=== PATIENT | male | born 1995 | race Asian ===

== ENCOUNTER 2020-06-12 17:06 | Emergency (ER) | payer OTHER, SELFPAY ==
[2020-06-12 17:17] VITALS: BP 142/79; PULSE 74; RESP 16; TEMP 36.6; O2SAT 98; BMI 23.6
--- NOTE | 2020-06-12 17:30 | ED.GENADULT ---
HPI - General Adult General Chief complaint: General Medical Stated complaint: Flu like symptoms Time Seen by Provider: 06/12/20 17:30 Source: patient Mode of arrival: ambulatory Limitations: no limitations History of Present Illness HPI narrative: Two days of body aches chills and today slight sore throat states would like to get COVID tested. Denies any chest pain shortness of breath. No fever. Onset (ago): day(s) (2 days ) Severity: mild Treatments prior to arrival: none Related Data Allergies Allergy/AdvReac Type Severity Reaction Status Date / Time No Known Allergies Allergy Verified 06/12/20 17:32 Review of Systems Review of Systems: Constitutional: No Weight loss, No Fever, + Chills, No Night Sweats, No Fatigue, No Malaise ENT/Mouth: No Hearing loss, No Ear Pain, + Nasal Congestion, No Sinus Pain, No Hoarseness, + sore throat, No Rhinorrhea, No Swallowing Difficulty Eyes: No Eye Pain, No Swelling, No Redness, No Foreign Body, No Discharge, No Vision Changes Cardiovascular: No Chest Pain, No SOB, No Dyspnea on Exertion, No Orthopnea, No Edema, No Palpitations Respiratory: No Cough, No Sputum, No Wheezing, No Smoke Exposure, No Dyspnea Gastrointestinal: No Nausea, No Vomiting, No Diarrhea, No Constipation, No abdominal Pain, No Hematochezia, No Melena Genitourinary: no irregular bleeding, No Dysuria, No Urinary Frequency, No Hematuria, No Urinary Incontinence, No Urgency, No Flank Pain Musculoskeletal: No joint pain, No Myalgias, No Joint Swelling Skin: No Skin Lesions, No rash Neuro: No Weakness, No Numbness, No Paresthesias, No Loss of Consciousness, No Dizziness, No Headache Psych: No Social Issues, Heme/Lymph: No Bruising, No Bleeding,No Lymphadenopathy Endocrine: No Polyuria, No Polydipsia, No Temperature Intolerance Yes all other systems are reviewed and are negative PMFSH Past Medical History Medical History (Updated 06/12/20 @ 17:34 by Brandon Proctor NP) No known health problems Social History Social History Advance Directives: No Advance Directives Information Provided: Yes Physical Exam Vital Signs: Vital Signs: Last Vital Signs Temp 97.9 F 06/12/20 17:17 Pulse 74 06/12/20 17:17 Resp 16 06/12/20 17:17 BP 142/79 H 06/12/20 17:17 Pulse Ox 98 06/12/20 17:17 Body Mass Index 23.6 Rviewed Const: General: cooperative and healthy appearing; No acute distress or intoxicated appearing Nutritional Appearance: average body habitus Orientation/consciousness: patient oriented x3 HENMT: Head: Yes normal to inspection Ears: hearing grossly normal bilaterally Eyes: General: appearance normal, both eyes and all related structures Visual Mejia: normal visual mejia by confrontation Neck: Neck: Yes normal visual inspection and No tender Thyroid: Thyroid normal Chest: Chest palpation & inspection: normal inspection of the chest Resp: Effort & Inspection: normal respiratory effort Cardio: Jugular venous distension: no JVD : General: Yes no CVA tenderness Back/Spine/Pelvis: Back: no CVA tenderness Skin: General skin exam: no rashes or lesions noted Neuro: General: patient oriented x3 Extrem: General: Yes normal to inspection Discharge Plan Discharge Clinical Impression: Acute viral syndrome Patient Disposition: Home, Self-Care Instructions: Viral Syndrome (ED) Additional Instructions: We have tested for COVID-19 as well as strep test The COVID-19 test will take up to 3-5 days to come back We will call you with results even if negative or positive Strep test she will take about 1 hour to result we will call with results only if positive Drink plenty fluids Salt water gargle Throat lozenges Self-isolation/social distancing Return if any concerns or worsening symptoms Thank you Referrals: Physician,Davion [Primary Care Provider] - 1 week
== END 2020-06-12 17:53 | disposition home or self-care (01) ==
PROVIDERS: Nurse Practitioner Primary Care; Emergency Provider Internal Medicine
DX: B34.9 Viral infection, unspecified (principal); M79.10 Myalgia, unspecified site; Z20.828 Contact with and (suspected) exposure to other viral communicable diseases
CPT/HCPCS: 87071; 87880; 99283; 99284; U0003

== ENCOUNTER 2021-05-19 11:43 | Emergency (ER) | payer OTHER, SELFPAY ==
[2021-05-19 11:49] VITALS: BP 121/68; PULSE 68; RESP 16; TEMP 36.8; O2SAT 99; BMI 24.3
--- NOTE | 2021-05-19 12:50 | ED_ITS ---
HPI - General Adult General Chief complaint: General Medical Stated complaint: belly button bleeding Time Seen by Provider: 05/19/21 12:50 Source: patient Mode of arrival: ambulatory Limitations: no limitations History of Present Illness HPI narrative: Umbilical infection with drainage for 1 year. Patient denies coleman ving diabetes. States that at times his abdomen feels sore. Onset (ago): year(s) Radiation: non-radiation Severity: mild Pain Consistency: constant Exacerbating factors: none Associated symptoms: denies other symptoms Related Data Previous Rx's Medication Instructions Recorded clotrimazole 1 % topical cream 1 appl TOPICAL BID 28 Days #90 g 05/19/21 (Clotrimazole AF) Allergies Allergy/AdvReac Type Severity Reaction Status Date / Time No Known Allergies Allergy Verified 06/12/20 17:32 Review of Systems Constitutional: Constitutional: Reports no additional constitutional complaints Eyes: Eyes: Reports no additional eye complaints ENT: Denies dizziness Cardiovascular: Cardiovascular: Reports no additional cardiovascular complaints Respiratory: Respiratory: Reports as per HPI Gastrointestinal: Gastrointestinal: Reports no additional gastrointestinal complaints Musculoskeletal: Musculoskeletal: Reports no additional musculoskeletal complaints Integumentary/Breasts: Skin/Breast: Denies rash Neurologic: Reports system reviewed and no additional complaints, except as documented, Denies dizziness and Denies Sensory deficit (Neuro) Psychiatric: Psychiatric: Denies anxiety PMFSH Past Medical History Medical History No known health problems Social History Social History Alcohol intake: never Advance Directives: Yes Advance Directives Information Provided: Yes Advance Directives on File: No Physical Exam Vital Signs: Vital Signs: Last Vital Signs Temp 98.9 F 05/19/21 15:41 Pulse 60 05/19/21 15:41 Resp 18 05/19/21 15:41 BP 123/83 05/19/21 15:41 Pulse Ox 98 05/19/21 15:41 Body Mass Index 24.3 Const: General: healthy appearing Nutritional Appearance: average body habi tus Orientation/consciousness: oriented to person and patient oriented x3 Limitations: no limitations HENMT: Head: Yes normal to inspection Ears: external ears normal General nose exam: Normal external nose present Mouth: Normal oral and palatal mucosa present and oropharynx normal Throat: Yes posterior oropharynx normal Eyes: General: appearance normal, both eyes and all related structures Neck: Other: supple Neck: Yes normal visual inspection Chest: Chest palpation & inspection: normal inspection of the chest Resp: Auscultation: clear to auscultation bilaterally Cardio: Jugular venous distension: no JVD Rate: regular rate Rhythm: regular rhythm Heart sounds: S1 normal heart sound present and S2 normal heart sound present GI: Other: abdomen completely soft, patient with fungal discharge from umbilicus Inspection: Yes normal to inspection Palpation (GI): Soft to palpation, nontender and No hepatosplenomegaly present Auscultation: normal bowel sounds : General: Yes no CVA tenderness Back/Spine/Pelvis: Back: no CVA tenderness Skin: General skin exam: no rashes or lesions noted Neuro: General: oriented to person and patient oriented x3 Cranial nerves: Yes CN's II-XII intact bilaterally Motor exam (neuro): 5/5 motor strength present throughout Sensory Exam: No Sensory deficit (Neuro) Extrem: General: Yes normal to inspection Psych: Appearance: grossly normal Course Reevaluation(s) Reevaluation #1: no evidence of diabetes will dc on lotrimin for umbilical candidiasis Time: 16:04 Medical Decision Making Lab Data Result diagrams: 05/19/21 14:57 05/19/21 14:57 Labs: Lab Results 05/19/21 05/19/21 Range/Units 14:57 14:57 WBC 5.7 (4.8-10.8) X10*3/uL RBC 4.97 (4.60-5.80) X10*6/uL Hgb 14.4 (14.0-18.0) g/dl Hct 42.7 (42.0-52.0) % MCV 85.9 (80.0-98.0) fL MCH 29.0 (27.0-33.0) pg MCHC 33.7 (31.0-36.0) g/dl RDW 11.9 (11.0-16.0) % Plt Count 223 (160-400) X10*3/uL MPV 9.0 L (9.4-12.4) fL Immature Gran % (Auto) 0.2 (0.0-0.4) % Neut % (Auto) 53.7 (45-73) % Lymph % (Auto) 27.6 (20-40) % [place] % (Auto) 11.3 H (2-11) % Eos % (Auto) 6.5 H (0-4) % Baso % (Auto) 0.7 (0-2) % Lymph # (Auto) 1.6 (1.2-4.9) X10*3/uL [place] # (Auto) 0.6 (0.1-1.2) X10*3/uL Eos # (Auto) 0.4 (0.0-0.4) X10*3/uL Baso # (Auto) 0.0 (0.0-0.2) X10*3/uL Abs Immat Gran (auto) 0.01 (0.00-0.03) X10*3/uL Absolute Neuts (auto) 3.0 (2.0-8.3) x10*3/uL Absolute Nucleated RBC 0.000 (0.0-0.012) X10*3/uL Nucleated RBC % (auto) 0.0 (0.0-0.2) /100WBC Sodium 137 (135-145) mmol/L Potassium 3.9 (3.3-5.1) mmol/L Chloride 104 (96-108) mmol/L Carbon Dioxide 25 (22-29) mmol/L Anion Gap 12 (12-20) BUN 17 H (9-16) mg/dL Creatinine 0.88 (0.5-1.4) mg/dL Estim Creat Clear Calc 130.1 Estimated GFR > 60 Random Glucose 97 (60-115) mg/dL Calcium 9.4 (8.4-10.2) mg/dL Discharge Plan Discharge Clinical Impression: Candidiasis Patient Disposition: Home, Self-Care Instructions: Skin Yeast Infection (ED) Prescriptions: New clotrimazole [Clotrimazole AF] 1 % cream 1 appl topical BID 28 Days Qty: 90 RF: 0 Referrals: Physician,Unknown J [Primary Care Provider] - 2 weeks
[2021-05-19 15:00] LABS: MANUAL DIFF FLAG NO
[2021-05-19 15:02] LABS: Basophils Percent Auto 0.7 % (0-2); Eosinophils Absolute Auto 0.4 X10*3/uL (0.0-0.4); Eosinophils Percent Auto 6.5 % (0-4); Hematocrit 42.7 % (42.0-52.0); Hemoglobin 14.4 g/dl (14.0-18.0); Imm Gran Abs Auto 0.01 X10*3/uL (0.00-0.03); Imm Gran Pct Auto 0.2 % (0.0-0.4); Lymphocytes Absolute Auto 1.6 X10*3/uL (1.2-4.9); Lymphocytes Percent Auto 27.6 % (20-40); Mean Corpuscular HGB Conc 33.7 g/dl (31.0-36.0); Mean Corpuscular Volume 85.9 fL (80.0-98.0); Monocytes Absolute Auto 0.6 X10*3/uL (0.1-1.2); Monocytes Percent Auto 11.3 % (2-11); Neutrophils Percent Auto 53.7 % (45-73); Platelet Count 223 X10*3/uL (160-400); Red Blood Count 4.97 X10*6/uL (4.60-5.80); Red Cell Distribution Width 11.9 % (11.0-16.0); White Blood Count 5.7 X10*3/uL (4.8-10.8)
[2021-05-19 15:21] LABS: Anion Gap 12 (12-20); Blood Urea Nitrogen 17 mg/dL (9-16); Calcium 9.4 mg/dL (8.4-10.2); Carbon Dioxide 25 mmol/L (22-29); Chloride 104 mmol/L (96-108); Creatinine Clr Calc Pharmacy 130.1; Estimated Glomerular Filt Rate > 60; Glucose Random 97 mg/dL (60-115); Potassium 3.9 mmol/L (3.3-5.1); Sodium 137 mmol/L (135-145)
[2021-05-19 15:41] VITALS: BP 123/83; PULSE 60; RESP 18; TEMP 37.2; O2SAT 98
== END 2021-05-19 16:20 | disposition home or self-care (01) ==
PROVIDERS: Emergency Provider Emergency Medicine
DX: B37.2 Candidiasis of skin and nail (principal)
CPT/HCPCS: 36415; 80048; 85025; 99283; 99284

== ENCOUNTER 2022-10-08 19:25 | Emergency (ER) | payer OTHER, SELFPAY ==
--- NOTE | ~2022-10-08 | XR_ITS ---
EXAMINATION: XR CHEST CLINICAL INFORMATION: Shortness of COMPARISON: None available. TECHNIQUE: 2 views of the chest were obtained. FINDINGS: No significant abnormality is noted involving the heart, lungs, mediastinum, bony thorax or soft tissues. XR/XR chest 2V IMPRESSION: Unremarkable examination.
[2022-10-08 19:26] VITALS: BP 109/71; PULSE 84; RESP 20; TEMP 36.5; O2SAT 96; BMI 25.5
--- NOTE | 2022-10-08 19:27 | ED.GENADULT ---
HPI - General Adult General Chief complaint: Asthma <REKHA Mendez - Last Filed: 10/08/22 19:27> Stated complaint: SOB <REKHA Mendez - Last Filed: 10/08/22 19:27> Time Seen by Provider: 10/08/22 21:29 <REKHA Mendez - Last Filed: 10/08/22 19:27> Source: patient <Kathe Braxton MD - Last Filed: 10/08/22 23:25> Mode of arrival: ambulatory <Kathe Braxton MD - Last Filed: 10/08/22 23:25> Limitations: no limitations <Kathe Braxton MD - Last Filed: 10/08/22 23:25> History of Present Illness HPI narrative: Patient comes to the emergency room complaining of asthma exacerbation. Patient states that it is unusual for him to have asthma exacerbations. Patient states about 4 days ago he was started on amoxicillin for strep pharyngitis. Patient states that his throat is feeling better. However, now he is having more asthma exacerbations. Patient denies allergies to penicillin, rash. <Kathe Braxton MD - Last Filed: 10/08/22 23:25> Related Data Home medications: Previous Rx's Medication Instructions Recorded clotrimazole 1 % topical cream 1 appl topical BID 4 weeks #90 05/19/21 (Clotrimazole AF) grams albuterol sulfate 90 mcg/actuation 2 puff inhalation Q4-6H PRN 10/08/22 aerosol inhaler shortness of breath or wheezing #8.5 grams prednisone 50 mg tablet 50 mg PO DAILY #4 tabs 10/08/22 <REKHA Mendez - Last Filed: 10/08/22 19:27> Allergies/adverse reactions: Allergies Allergy/AdvReac Type Severity Reaction Status Date / Time No Known Allergies Allergy Verified 10/08/22 19:26 <REKHA Mendez - Last Filed: 10/08/22 19:27> Review of Systems Review of Systems: Constitutional : No Weight loss, No Fever, No Chills, No Night Sweats, No Fatigue, No Malaise ENT/Mouth : No Hearing loss, No Ear Pain, No Nasal Congestion, No Sinus Pain, No Hoarseness, No sore throat, No Rhinorrhea, No Swallowing Difficulty Eyes: No Eye Pain, No Swelling, No Redness, No Foreign Body, No Discharge, No Vision Changes Cardiovascular : No Chest Pain, No SOB, No Dyspnea on Exertion, No Orthopnea, No Edema, No Palpitations Respiratory : No Cough, complaining of wheezing Gastrointestinal : No Nausea, No Vomiting, No Diarrhea, No Constipation, No abdominal Pain, No Hematochezia, No Melena Genitourinary : no irregular bleeding, No Dysuria, No Urinary Frequency, No Hematuria, No Urinary Incontinence, No Urgency, No Flank Pain, No Urinary Flow Changes, No Hesitancy Musculoskeletal : No joint pain, No Myalgias, No Joint Swelling Skin : No Skin Lesions, No rash Neuro : No Weakness, No Numbness, No Paresthesias, No Loss of Consciousness, No Dizziness, No Headache Psych : No Anxiety/Panic, No Depression, No SI/HI/AH/VH, No Social Issues, Heme/Lymph: No Bruising, No Bleeding,No Lymphadenopathy Endocrine : No Polyuria, No Polydipsia, No Temperature Intolerance <Kathe Braxton MD - Last Filed: 10/08/22 23:25> [facility] Past Medical History Medical History: Medical History (Updated 10/08/22 @ 23:24 by Kathe Braxton MD) Asthma exacerbation <REKHA Mendez - Last Filed: 10/08/22 19:27> Social History Social History: Social History Alcohol intake: never Advance Directives: No Advance Directives Information Provided: No <REKHA Mendez - Last Filed: 10/08/22 19:27> Physical Exam ED Vital Signs: Vital Signs - 24 hr 10/08/22 19:26 10/08/22 22:06 10/08/22 22:49 Temperature 97.7 F 99.8 F Pulse Rate 84 86 88 Respiratory Rate 20 14 18 Blood Pressure 109/71 149/73 H Pulse Oximetry 96 98 Oxygen Delivery Method Room Air Room Air BMI result Body Mass Index 25.5 <REKHA Mendez - Last Filed: 10/08/22 19:27> Vital Signs - 24 hr 10/08/22 19:26 10/08/22 22:06 10/08/22 22:49 Temperature 97.7 F 99.8 F Pulse Rate 84 86 88 Respiratory Rate 20 14 18 Blood Pressure 109/71 149/73 H Pulse Oximetry 96 98 Oxygen Delivery Method Room Air Room Air BMI result Body Mass Index 25.5 <Kathe Braxton MD - Last Filed: 10/08/22 23:25> Const Other: Appearance: Alert. Oriented X3. No acute distress. Eyes: Pupils equal, round and reactive to light. ENT: Pharynx normal. Neck: Normal inspection. Neck supple. No lymph nodes noted. No crepitus CVS: Normal heart rate and rhythm. Pulses normal. Normal S1 and S2 Respiratory: No respiratory distress. Bilateral wheezing Abdomen: Soft and nontender. No rigidity. No distention. Skin: Skin warm and dry. Normal skin color. Normal skin turgor. Extremities: No lower extremity edema. No Lacerations. No Rash Neuro: Oriented X 3. No motor deficit. No sensory deficit. Moving all extremities. No slurred speech. CN 2 through 12 grossly intact Psych: calm, cooperative, normal affect <Kathe Braxton MD - Last Filed: 10/08/22 23:25> Course Course Course Narrative: RME performed by Arielle Peace PA-C. Patient is a 27 year old assigned male at presenting to the emergency department with shortness of breath. Patient has a known history of asthma. Labs, imaging, and swabs ordered. Patient placed back in the waiting room pending room availability and results. <REKHA Mendez - Last Filed: 10/08/22 19:27> Medications Administered Discontinued Medications Generic Name Dose Route Start Last Admin Trade Name Freq PRN Reason Stop Dose Admin Albuterol Sulfate 5 mg 10/08/22 21:34 10/08/22 22:03 Albuterol Sulfate (0.083%) 2.5 Mg/3 Ml Vial.Neb INHALE 10/08/22 21:35 5 mg ONCE ONE Administration Methylprednisolone Sodium Succinate 125 mg 10/08/22 21:34 10/08/22 21:48 Methylprednisolone Sod Succ 125 Mg/2 Ml Vial IVPUSH 10/08/22 21:35 125 mg ONCE ONE Administration <REKHA Mendez - Last Filed: 10/08/22 19:27> Medications Administered Discontinued Medications Generic Name Dose Route Start Last Admin Trade Name Freq PRN Reason Stop Dose Admin Albuterol Sulfate 5 mg 10/08/22 21:34 10/08/22 22:03 Albuterol Sulfate (0.083%) 2.5 Mg/3 Ml Vial.Neb INHALE 10/08/22 21:35 5 mg ONCE ONE Administration Methylprednisolone Sodium Succinate 125 mg 10/08/22 21:34 10/08/22 21:48 Methylprednisolone Sod Succ 125 Mg/2 Ml Vial IVPUSH 10/08/22 21:35 125 mg ONCE ONE Administration <Kathe Braxton MD - Last Filed: 10/08/22 23:25> Medical Decision Making Medical Decision Making [facility] Narrative: -patient received IV Solu-Medrol, nebulization treatment. Patient feeling better. -oxygen 98 % on room air prior to discharge with exertion <Kathe Braxton MD - Last Filed: 10/08/22 23:25> Differential Diagnosis Differential Diagnoses: The differential diagnosis associated with the presentation includes (Viral illness, asthma) <Kathe Braxton MD - Last Filed: 10/08/22 23:25> Lab Data [facility] Lab Attestation statement: I reviewed the patient's lab results. <Kathe Braxton MD - Last Filed: 10/08/22 23:25> Result Diagrams: 10/08/22 19:47 10/08/22 19:47 <REKHA Mendez - Last Filed: 10/08/22 19:27> Labs: Lab Results 10/08/22 10/08/22 10/08/22 Range/Units 19:47 19:47 19:47 WBC 7.5 (4.8-10.8) X10*3/uL RBC 5.18 (4.60-5.80) X10*6/uL Hgb 15.0 (14.0-18.0) g/dl Hct 43.6 (42.0-52.0) % MCV 84.2 (80.0-98.0) fL MCH 29.0 (27.0-33.0) pg MCHC 34.4 (31.0-36.0) g/dl RDW 11.8 (11.0-16.0) % Plt Count 256 (160-400) X10*3/uL MPV 9.3 L (9.4-12.4) fL Immature Gran % (Auto) 0.3 (0.0-0.4) % Neut % (Auto) 66.9 (45-73) % Lymph % (Auto) 13.7 L (20-40) % [place] % (Auto) 12.3 H (2-11) % Eos % (Auto) 6.3 H (0-4) % Baso % (Auto) 0.5 (0-2) % Lymph # (Auto) 1.0 L (1.2-4.9) X10*3/uL [place] # (Auto) 0.9 (0.1-1.2) X10*3/uL Eos # (Auto) 0.5 H (0.0-0.4) X10*3/uL Baso # (Auto) 0.0 (0.0-0.2) X10*3/uL Abs Immat Gran (auto) 0.02 (0.00-0.03) X10*3/uL Absolute Neuts (auto) 5.0 (2.0-8.3) x10*3/uL Absolute Nucleated RBC 0.000 (0.0-0.012) X10*3/uL Nucleated RBC % (auto) 0.0 (0.0-0.2) /100WBC Sodium 143 (135-145) mmol/L Potassium 4.0 (3.3-5.1) mmol/L Chloride 106 (96-108) mmol/L Carbon Dioxide 27 (22-29) mmol/L Anion Gap 14 (12-20) BUN 16 (9-16) mg/dL Creatinine 0.85 (0.5-1.4) mg/dL Estim Creat Clear Calc 132.4 Estimated GFR > 60 Random Glucose 89 (60-115) mg/dL Calcium 9.3 (8.4-10.2) mg/dL Magnesium 2.2 (1.6-2.6) mg/dL Total Bilirubin 0.7 (0.0-1.0) mg/dL AST 17 (5-37) U/L ALT 23 (0-40) U/L Alkaline Phosphatase 57 (39-117) U/L Total Protein 7.5 (6.5-8.0) g/dL Albumin 4.4 (3.5-5.0) g/dL COVID-19 (MCKAYLA) (Negative) COVID-19 Clin Com Influenza Type A (RAMAKRISHNA) Cancelled Influenza Type B (RAMAKRISHNA) Cancelled Influenza A & B Note Cancelled 10/08/22 10/08/22 Range/Units 19:47 20:42 WBC (4.8-10.8) X10*3/uL RBC (4.60-5.80) X10*6/uL Hgb (14.0-18.0) g/dl Hct (42.0-52.0) % MCV (80.0-98.0) fL MCH (27.0-33.0) pg MCHC (31.0-36.0) g/dl RDW (11.0-16.0) % Plt Count (160-400) X10*3/uL MPV (9.4-12.4) fL Immature Gran % (Auto) (0.0-0.4) % Neut % (Auto) (45-73) % Lymph % (Auto) (20-40) % [place] % (Auto) (2-11) % Eos % (Auto) (0-4) % Baso % (Auto) (0-2) % Lymph # (Auto) (1.2-4.9) X10*3/uL [place] # (Auto) (0.1-1.2) X10*3/uL Eos # (Auto) (0.0-0.4) X10*3/uL Baso # (Auto) (0.0-0.2) X10*3/uL Abs Immat Gran (auto) (0.00-0.03) X10*3/uL Absolute Neuts (auto) (2.0-8.3) x10*3/uL Absolute Nucleated RBC (0.0-0.012) X10*3/uL Nucleated RBC % (auto) (0.0-0.2) /100WBC Sodium (135-145) mmol/L Potassium (3.3-5.1) mmol/L Chloride (96-108) mmol/L Carbon Dioxide (22-29) mmol/L Anion Gap (12-20) BUN (9-16) mg/dL Creatinine (0.5-1.4) mg/dL Estim Creat Clear Calc Estimated GFR Random Glucose (60-115) mg/dL Calcium (8.4-10.2) mg/dL Magnesium (1.6-2.6) mg/dL Total Bilirubin (0.0-1.0) mg/dL AST (5-37) U/L ALT (0-40) U/L Alkaline Phosphatase (39-117) U/L Total Protein (6.5-8.0) g/dL Albumin (3.5-5.0) g/dL COVID-19 (MCKAYLA) Negative (Negative) COVID-19 Clin Com See Note Influenza Type A (RAMAKRISHNA) Negative Influenza Type B (RAMAKRISHNA) Negative Influenza A & B Note See Note <REKHA Mendez - Last Filed: 10/08/22 19:27> Lab Results 10/08/22 10/08/22 10/08/22 Range/Units 19:47 19:47 19:47 WBC 7.5 (4.8-10.8) X10*3/uL RBC 5.18 (4.60-5.80) X10*6/uL Hgb 15.0 (14.0-18.0) g/dl Hct 43.6 (42.0-52.0) % MCV 84.2 (80.0-98.0) fL MCH 29.0 (27.0-33.0) pg MCHC 34.4 (31.0-36.0) g/dl RDW 11.8 (11.0-16.0) % Plt Count 256 (160-400) X10*3/uL MPV 9.3 L (9.4-12.4) fL Immature Gran % (Auto) 0.3 (0.0-0.4) % Neut % (Auto) 66.9 (45-73) % Lymph % (Auto) 13.7 L (20-40) % [place] % (Auto) 12.3 H (2-11) % Eos % (Auto) 6.3 H (0-4) % Baso % (Auto) 0.5 (0-2) % Lymph # (Auto) 1.0 L (1.2-4.9) X10*3/uL [place] # (Auto) 0.9 (0.1-1.2) X10*3/uL Eos # (Auto) 0.5 H (0.0-0.4) X10*3/uL Baso # (Auto) 0.0 (0.0-0.2) X10*3/uL Abs Immat Gran (auto) 0.02 (0.00-0.03) X10*3/uL Absolute Neuts (auto) 5.0 (2.0-8.3) x10*3/uL Absolute Nucleated RBC 0.000 (0.0-0.012) X10*3/uL Nucleated RBC % (auto) 0.0 (0.0-0.2) /100WBC Sodium 143 (135-145) mmol/L Potassium 4.0 (3.3-5.1) mmol/L Chloride 106 (96-108) mmol/L Carbon Dioxide 27 (22-29) mmol/L Anion Gap 14 (12-20) BUN 16 (9-16) mg/dL Creatinine 0.85 (0.5-1.4) mg/dL Estim Creat Clear Calc 132.4 Estimated GFR > 60 Random Glucose 89 (60-115) mg/dL Calcium 9.3 (8.4-10.2) mg/dL Magnesium 2.2 (1.6-2.6) mg/dL Total Bilirubin 0.7 (0.0-1.0) mg/dL AST 17 (5-37) U/L ALT 23 (0-40) U/L Alkaline Phosphatase 57 (39-117) U/L Total Protein 7.5 (6.5-8.0) g/dL Albumin 4.4 (3.5-5.0) g/dL COVID-19 (MCKAYLA) (Negative) COVID-19 Clin Com Influenza Type A (RAMAKRISHNA) Cancelled Influenza Type B (RAMAKRISHNA) Cancelled Influenza A & B Note Cancelled 10/08/22 10/08/22 Range/Units 19:47 20:42 WBC (4.8-10.8) X10*3/uL RBC (4.60-5.80) X10*6/uL Hgb (14.0-18.0) g/dl Hct (42.0-52.0) % MCV (80.0-98.0) fL MCH (27.0-33.0) pg MCHC (31.0-36.0) g/dl RDW (11.0-16.0) % Plt Count (160-400) X10*3/uL MPV (9.4-12.4) fL Immature Gran % (Auto) (0.0-0.4) % Neut % (Auto) (45-73) % Lymph % (Auto) (20-40) % [place] % (Auto) (2-11) % Eos % (Auto) (0-4) % Baso % (Auto) (0-2) % Lymph # (Auto) (1.2-4.9) X10*3/uL [place] # (Auto) (0.1-1.2) X10*3/uL Eos # (Auto) (0.0-0.4) X10*3/uL Baso # (Auto) (0.0-0.2) X10*3/uL Abs Immat Gran (auto) (0.00-0.03) X10*3/uL Absolute Neuts (auto) (2.0-8.3) x10*3/uL Absolute Nucleated RBC (0.0-0.012) X10*3/uL Nucleated RBC % (auto) (0.0-0.2) /100WBC Sodium (135-145) mmol/L Potassium (3.3-5.1) mmol/L Chloride (96-108) mmol/L Carbon Dioxide (22-29) mmol/L Anion Gap (12-20) BUN (9-16) mg/dL Creatinine (0.5-1.4) mg/dL Estim Creat Clear Calc Estimated GFR Random Glucose (60-115) mg/dL Calcium (8.4-10.2) mg/dL Magnesium (1.6-2.6) mg/dL Total Bilirubin (0.0-1.0) mg/dL AST (5-37) U/L ALT (0-40) U/L Alkaline Phosphatase (39-117) U/L Total Protein (6.5-8.0) g/dL Albumin (3.5-5.0) g/dL COVID-19 (MCKAYLA) Negative (Negative) COVID-19 Clin Com See Note Influenza Type A (RAMAKRISHNA) Negative Influenza Type B (RAMAKRISHNA) Negative Influenza A & B Note See Note <Kathe Braxton MD - Last Filed: 10/08/22 23:25> Independent Interpretation I performed an independent interpretation of an: Plain X-Ray (My interpretation of chest x-ray: No pulmonary infiltrate) <Kathe Braxton MD - Last Filed: 10/08/22 23:25> Radiology Impression Discussion of test interpretation with radiology: I have reviewed the radiologist's reading. <Kathe Braxton MD - Last Filed: 10/08/22 23:25> Radiologist Impression: No significant abnormality is noted involving the heart, lungs, mediastinum, bony thorax or soft tissues. XR/XR chest 2V IMPRESSION: Unremarkable examination. <Kathe Braxton MD - Last Filed: 10/08/22 23:25> Discharge Plan Discharge Clinical Impression: Asthma with acute exacerbation <REKHA Mendez - Last Filed: 10/08/22 19:27> Patient Disposition: Home, Self-Care <RKEHA Mendez - Last Filed: 10/08/22 19:27> Instructions: Asthma (ED) <REKHA Mendez - Last Filed: 10/08/22 19:27> Additional Instructions: Please follow-up with your primary care physician tomorrow. If you have any worsening or new symptoms, please return to the emergency room or call 911 <REKHA Mendez - Last Filed: 10/08/22 19:27> Prescriptions: New prednisone 50 mg tablet 50 mg PO DAILY Qty: 4 0RF albuterol sulfate 90 mcg/actuation HFA aerosol inhaler 2 puff inhalation Q4-6H PRN (Reason: shortness of breath or wheezing) Qty: 8.5 1RF No Action clotrimazole [Clotrimazole AF] 1 % cream 1 appl topical BID 28 Days Qty: 90 0RF <REKHA Mendez - Last Filed: 10/08/22 19:27>
--- NOTE | 2022-10-08 19:28 | ECG_ITS ---
Test Reason : SOB Blood Pressure : / mmHG Vent. Rate : 088 BPM Atrial Rate : 088 BPM P-R Int : 138 ms QRS Dur : 088 ms QT Int : 354 ms P-R-T Axes : 073 068 033 degrees QTc Int : 428 ms Normal sinus rhythm Normal ECG No previous ECGs available Referred By: Arielle Peace Electronically Signed By:Aleksandar De León
[2022-10-08 19:55] LABS: MANUAL DIFF FLAG NO
[2022-10-08 20:16] LABS: Basophils Percent Auto 0.5 % (0-2); Eosinophils Absolute Auto 0.5 X10*3/uL (0.0-0.4); Eosinophils Percent Auto 6.3 % (0-4); Hematocrit 43.6 % (42.0-52.0); Imm Gran Abs Auto 0.02 X10*3/uL (0.00-0.03); Imm Gran Pct Auto 0.3 % (0.0-0.4); Lymphocytes Percent Auto 13.7 % (20-40); Mean Corpuscular HGB Conc 34.4 g/dl (31.0-36.0); Mean Corpuscular Volume 84.2 fL (80.0-98.0); Mean Platelet Volume 9.3 fL (9.4-12.4); Monocytes Absolute Auto 0.9 X10*3/uL (0.1-1.2); Monocytes Percent Auto 12.3 % (2-11); Neutrophils Percent Auto 66.9 % (45-73); Platelet Count 256 X10*3/uL (160-400); Red Blood Count 5.18 X10*6/uL (4.60-5.80); Red Cell Distribution Width 11.8 % (11.0-16.0); White Blood Count 7.5 X10*3/uL (4.8-10.8)
[2022-10-08 20:31] LABS: Alanine Aminotransferase 23 U/L (0-40); Albumin Level 4.4 g/dL (3.5-5.0); Alkaline Phosphatase 57 U/L (39-117); Anion Gap 14 (12-20); Aspartate Amino Transferase 17 U/L (5-37); Bilirubin Total 0.7 mg/dL (0.0-1.0); Blood Urea Nitrogen 16 mg/dL (9-16); Calcium 9.3 mg/dL (8.4-10.2); Carbon Dioxide 27 mmol/L (22-29); Chloride 106 mmol/L (96-108); Creatinine Clr Calc Pharmacy 132.4; Estimated Glomerular Filt Rate > 60; Glucose Random 89 mg/dL (60-115); Magnesium 2.2 mg/dL (1.6-2.6); Sodium 143 mmol/L (135-145); Total Protein 7.5 g/dL (6.5-8.0)
[2022-10-08 20:45] LABS: IDNOW Serial# BCCEAD1C
[2022-10-08 20:46] LABS: COVID-19 Test Negative (Negative)
[2022-10-08 21:13] LABS: IDNOW Serial# BCCEAD1C; Influenza A Negative (Negative); Influenza B2 Negative (Negative)
[2022-10-08] MEDS: methylPREDNISolone Sod Succ 125 MG/2 ML VIAL IVPUSH (21:48)
[2022-10-08] MEDS: Albuterol Sulfate (0.083%) 2.5 MG/3 ML VIAL.NEB 5 MG INHALE (22:03)
[2022-10-08 22:06] VITALS: PULSE 86; RESP 14; O2SAT 96
[2022-10-08 22:49] VITALS: BP 149/73; PULSE 88; RESP 18; TEMP 37.7; O2SAT 98
[2022-10-08 23:40] VITALS: BP 124/68; PULSE 76; RESP 18; O2SAT 98
== END 2022-10-08 23:45 | disposition home or self-care (01) ==
PROVIDERS: Physician Assistant Medical; Emergency Provider Emergency Medicine; PCP Internal Medicine
DX: J45.901 Unspecified asthma with (acute) exacerbation (principal); R06.02 Shortness of breath; Z20.822 Contact with and (suspected) exposure to COVID-19
CPT/HCPCS: 71046; 80053; 83735; 85025; 87502; 87635; 93005; 94640; 96374; 99284; J2930